=== PATIENT | male | born 1980 | race Caucasian/White ===

== ENCOUNTER 2020-07-30 08:47 | Emergency (ER) | payer OTHER, SELFPAY ==
[2020-07-30 09:45] VITALS: BP 135/90; PULSE 87; RESP 20; TEMP 36.8; O2SAT 100; BMI 23.1
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
[2020-07-30] MEDS: Ketorolac Tromethamine 30 MG/ML VIAL IVPUSH (09:56)
[2020-07-30] MEDS: ondansetron HCL 4 MG/2 ML VIAL IVPUSH (09:56)
[2020-07-30] MEDS: 0.9 % Sodium Chloride 1,000 ML 999 ML IV (09:56)
[2020-07-30] MEDS: Tamsulosin HCL 0.4 MG CAPSULE PO (09:56)
[2020-07-30 09:57] LABS: MANUAL DIFF FLAG NO
[2020-07-30 09:58] LABS: Basophils Percent Auto 0.3 % (0-2); Eosinophils Absolute Auto 0.3 X10*3/uL (0.0-0.4); Eosinophils Percent Auto 2.2 % (0-4); Hematocrit 44.8 % (42-52); Hemoglobin 14.8 g/dl (14.0-18.0); Imm Gran Abs Auto 0.05 X10*3/uL (0.00-0.03); Imm Gran Pct Auto 0.4 % (0.0-0.4); Lymphocytes Absolute Auto 1.6 X10*3/uL (1.2-4.9); Lymphocytes Percent Auto 11.9 % (20-40); Mean Corpuscular Hemoglobin 29.4 pg (27.0-33.0); Mean Corpuscular Volume 89.1 fL (80-98); Monocytes Absolute Auto 1.2 X10*3/uL (0.1-1.2); Monocytes Percent Auto 8.9 % (2-11); Neutrophils Absolute Auto 10.3 X10*3/uL (2.0-8.3); Neutrophils Percent Auto 76.3 % (45-73); Platelet Count 265 X10*3/uL (160-400); Red Blood Count 5.03 X10*6/uL (4.60-5.80); Red Cell Distribution Width 13.2 % (11.0-16.0); White Blood Count 13.5 X10*3/uL (4.8-10.8)
[2020-07-30 10:31] LABS: Alanine Aminotransferase 22 U/L (0-40); Albumin Level 4.3 g/dL (3.5-5.0); Alkaline Phosphatase 94 U/L (39-117); Anion Gap 15 (12-20); Aspartate Amino Transferase 19 U/L (5-37); Bilirubin Total 0.2 mg/dL (0.0-1.0); Blood Urea Nitrogen 12 mg/dL (9-16); Calcium 9.1 mg/dL (8.4-10.2); Carbon Dioxide 24 mmol/L (22-29); Chloride 106 mmol/L (96-108); Estimated Glomerular Filt Rate > 60; Glucose Random 101 mg/dL (60-115); Potassium 4.1 mmol/l (3.3-5.1); Sodium 141 mmol/L (135-145)
[2020-07-30 11:28] LABS: Glucose Urine UA NEG (NEG); Leukocyte Esterase Urine NEG (NEG); Nitrite Urine NEG (NEG); Specific Gravity - Urine >= 1.030 (1.005-1.025); Urine Blood 2+ (NEG); Urine Ketones NEG (NEG); Urine Protein NEG (NEG-TRACE)
[2020-07-30 11:31] LABS: Appearance Urine HAZY; Color Urine YELLOW
[2020-07-30 11:39] LABS: Calcium Oxalate Crystals Urine 1+ /LPF; Mucus Urine 2+ /LPF
[2020-07-30 11:51] LABS: Amphetamine Screen Urine Not Detected (Not Detect); Barbiturates, Urine Not Detected (Not Detect); Benzodiazepines Screen Urine Not Detected (Not Detect); Cannabinoid Screen Urine POSITIVE (Not Detect); Cocaine Screen Urine POSITIVE (Not Detect); Opiate Screen Urine Not Detected (Not Detect); Phencyclidine Screen Urine Not Detected (Not Detect)
== END 2020-07-30 12:43 | disposition home or self-care (01) ==
PROVIDERS: Nurse Practitioner Primary Care; Emergency Provider Emergency Medicine Emergency Medical Services; PCP Internal Medicine
DX: N20.0 Calculus of kidney (principal); R11.0 Nausea; Z79.899 Other long term (current) drug therapy
CPT/HCPCS: 36415; 74176; 80053; 80307; 81001; 85025; 96361; 96374; 96375; 99283; J1885; J2405

== ENCOUNTER 2020-07-31 11:44 | Day surgery (SDC) | payer OTHER, SELFPAY ==
[2020-07-31 12:15] VITALS: BMI 24.0
--- NOTE | 2020-07-31 12:23 | P.CONAN_ITS ---
[facility] Past Medical History Medical History History of kidney stones Smoker Social History Social History Smoking Status: Current every day smoker Cigarettes Per Day: 5 Use of substances other than those prescribed or required for medical reasons: Yes Advance Directives: No Advance Directives Information Provided: Yes Meds Allergies Allergy/AdvReac Type Severity Reaction Status Date / Time lorazepam [From ATIVAN] AdvReac Unknown AGITATION Verified 07/31/20 12:14 Exam Exam Date and Time: July 31, 2020 1223 Height,Weight and Vital Signs: Height 5 ft 4 in Weight 63.503 kg
[2020-07-31 12:26] VITALS: BP 102/71; PULSE 75; RESP 16; TEMP 36.8; O2SAT 98
--- NOTE | 2020-07-31 13:40 | FL_ITS ---
EXAMINATION: XR FL GUIDANCE IN OR WITH IMAGES CLINICAL INFORMATION: Stones. COMPARISON: None TECHNIQUE: Fluoroscopy performed by Dr. Rigo Kaminski. Fluoroscopy Time: 44.2 seconds. DAP: 7.98 mGycm2. Images: 4. FINDINGS: There is contrast opacifying the left proximal ureter with luminal filling defect in the mid ureter likely migrated stone with moderate left hydronephrosis. No intraluminal filling defects seen in the left pelvis On the previous CT abdomen exam, the stone was in the left proximal ureter. Subsequent images revealing internal stent in place. The proximal lead in the kidney pelvis and the distal end in the bladder. FL/FL guidance in OR IMPRESSION: Fluoroscopy was provided to Dr. Rigo Kaminski during left retrograde pyelogram for removal of ureteral stone.
--- NOTE | 2020-07-31 13:55 | MHC.SHP ---
Pre-Procedural Eval Section B Chief Complaint: calculus of kidney Details of Present Illness: This is a 40-year-old male. Had been seen in the emergency room yesterday. Has a proximal left ureteric stone with stranding the kidney. Was managed for pain relief at that point in time. Since there was no beds at the hospital he was sent home and is brought in today for definitive management. Pain has been managed. He has been NPO since midnight. Plan is for left retrograde, ureteroscopy, laser lithotripsy stone basketing and stent placement. Risks and benefits were discussed. He has had prior procedures and is familiar with this procedure. Relevant Family History (Specify if Yes): Yes Relevant Social History: None Present Medications: see Short Stay Collaborative assessment Medical History: No relevant PMH History of Previous Operations: Relevant previous surgery/procedure and date(s) Allergies: Allergies Allergy/AdvReac Type Severity Reaction Status Date / Time lorazepam [From ATIVAN] AdvReac Unknown AGITATION Verified 07/31/20 12:14 Review of Systems Sugical H&P ROS: Negative: Constitution, Cardiovascular, Respiratory, Neurological, Psychiatric, Hem-Onc, Allergic/Immunologic, Gastrointestinal, Genitourinary, Musculoskeletal, Integumentary, Endocrine and Eyes/Ears/Nose/Throat Exam Surgical H&P Exam: Normal: HEENT, Normal: Heart, Normal: Lungs, Normal: Extremities, Normal: Abdomen, Normal: Skin and Normal: Neurological Plan I have reviewed the history and physical and performed a pertinent physical examination on my patient. No changes have occurred unless specified. Cystoscopy with left retrograde, ureteroscopy, laser lithotripsy, stone stent placement
[2020-07-31] MEDS: levoFLOXacin 500 MG TABLET PO (14:01)
[2020-07-31] MEDS: Lactated Ringers 1,000 ML 20 ML IVCONT (14:04)
[2020-07-31 14:45] VITALS: BP 123/73; PULSE 87; RESP 16; TEMP 36.2; O2SAT 95
[2020-07-31 14:50] VITALS: BP 127/76; PULSE 70; RESP 16; O2SAT 98
[2020-07-31 14:55] VITALS: BP 115/82; PULSE 64; RESP 16; TEMP 36.3; O2SAT 98
--- NOTE | 2020-07-31 14:57 | PM.OP ---
Brief Operative Note Date of Service: 07/31/20 Pre-op diagnosis: 1. left mid ureteric stone 2. Left renal kidney stone Post-op diagnosis: same Procedure: 1. Cystoscopy with left retrograde 2. Dilatation left ureteric orifice with fluoroscopy 3. Ureteroscopy with laser lithotripsy stone basketing-there were 2 stones in the kidney 1 in the upper pole 1 in the lower pole 4. Left ureteric stent placement Implants: Six Nepali by 24 cm double-J ureteric catheter Surgeon: Gordy Sierra MD Anesthesia: GLMA Estimated blood loss (mL): 0 Pathology: other (Stones) Condition: stable Disposition: same day
--- NOTE | 2020-07-31 14:59 | W.PM.OPN ---
Operative Note Operative Note Date of Service: 07/31/20 Narrative: PreOperative Diagnosis: Left proximal ureteric stone Post Operative Diagnosis: 1. Left proximal ureteric stone 2. Left renal stone lower pole Procedure: - left cystoscopy, retrograde - dilatation of ureteric orifice under fluoroscopy - left ureteroscopy, laser lithotripsy, stone basketing - plus laser lithotripsy of lower pole stone - left stent placement Surgeon: Dr Gordy Sierra Anesthesia: General Indications for procedure: 40-year-old male. Presented to the emergency room Friday. Pain medication was used for full control of left flank pain. Found to have a proximal ureteric stone. Was discharged home and presents today for definitive procedure. Is aware of the risks and benefits. Has undergone ureteroscopy previously Procedure: After informed consent was verified patient was brought to the operating placed in supine position. Anesthesia was administered per protocol. Patient was placed in modified dorsal lithotomy position and prepped and draped in a sterile fashion. Safety pause time-out and side of surgery confirmed. Antibiotics confirmed. Twenty-two Albanian cystoscope introduced per urethra. No abnormalities noted in the anterior posterior urethra. Both ureteric orifices normal position. Fluoroscopy performed. Filling defects seen in the proximal ureter. Sensor guidewire placed. Dilatation left ureteric orifice under fluoroscopy. Ureteric access sheath placed. Flexible ureteral scope placed. Stone to be knocked back into the kidney was present in the renal pelvis. The stone was encountered and engaged and broken to small pieces with laser lithotripsy. A 2nd stone was down in the lower pole of the kidney and this was also engaged and broken into small pieces. ZeroTip basket used for stone fragment basketing. Pieces were removed and sent for pathology. At this point the flexible ureteroscope was removed. A sensor guidewire was placed. The access sheath was removed. The wire was backloaded into a 22 Albanian cystoscope. This was introduced. The 6 [place]ian by 24 cm double-J ureteric catheter was placed with visualization. Bladder was emptied of fluid. The patient tolerated procedure well was extubated in operating room and transferred in stable condition to recovery area. Pathology: Stones Drains: 6 [place]ian by 24 cm double-J ureteric stent
[2020-07-31 15:00] VITALS: BP 118/86; PULSE 65; RESP 16; O2SAT 98
[2020-07-31 15:15] VITALS: BP 115/84; PULSE 66; RESP 16; O2SAT 98
[2020-07-31] MEDS: Phenazopyridine HCL 100 MG TABLET PO (15:28)
--- NOTE | 2020-07-31 15:46 | HO.POSTANES ---
Post Anesthesia Evaluation Post Anesthesia Evaluation Vital Signs: Vital Signs Temp Pulse Resp BP Pulse Ox 07/31/20 15:15 97.4 F 66 16 115/84 98 07/31/20 15:00 65 16 118/86 98 07/31/20 14:55 97.4 F 64 16 115/82 98 07/31/20 14:50 70 16 127/76 98 07/31/20 14:45 97.2 F 87 16 123/73 95 07/31/20 12:26 98.3 F 75 16 102/71 98 Anesthesia: General LMA Mental Status: Awake Pain Control: Satisfactory Nausea/Vomiting: None Hydration: Adequate Anesthesia-Related Issues: No Anes. Related Issues
== END 2020-07-31 15:38 | disposition home or self-care (01) ==
PROVIDERS: Visit Provider Urology
PROC: (CPT 52356; principal; 2020-07-31 12:40)
DX: N20.0 Calculus of kidney (principal); N20.1 Calculus of ureter; Z87.442 Personal history of urinary calculi; F17.200 Nicotine dependence, unspecified, uncomplicated; Z88.8 Allergy status to other drugs, medicaments and biological substances
CPT/HCPCS: 52356; 88300; C1769; C1894; C2617; J1100; J1885; J2250; J2405; J3010; Q9967

== ENCOUNTER → 2020-08-08 12:50 | Outpatient (BNVA) | payer OTHER, SELFPAY | PROVIDERS: Visit Provider Urology | DX: Z46.6 Encounter for fitting and adjustment of urinary device (principal) | CPT/HCPCS: 52000; 52310; 99212 ==

== ENCOUNTER 2020-09-13 16:24 | Outpatient (REF) | payer OTHER, SELFPAY ==
--- NOTE | ~2020-09-13 | US_ITS ---
EXAMINATION: US RETROPERITONEAL LIMITED (RENAL ONLY) CLINICAL INFORMATION: Calculus of kidney. COMPARISON: CT abdomen and pelvis 07/30/2020. TECHNIQUE: Real-time imaging of the kidneys. FINDINGS: RIGHT KIDNEY: 10.0 x 4.0 x 5.1 cm (SAG x AP x TRV). The kidney is normal in size, contour, and echogenicity. Renal cortical thickness is normal. No calculi or focal parenchymal lesions. No hydronephrosis. LEFT KIDNEY: 10.7 x 5.7 x 4.7 cm (SAG x AP x TRV). The kidney is normal in size, contour, and echogenicity. Renal cortical thickness is normal. No calculi or focal parenchymal lesions. No hydronephrosis. US/US renal BI IMPRESSION: Unremarkable renal ultrasound.
== END 2020-09-13 16:25 | disposition home or self-care (01) ==
LOC: HO.US 16:24
PROVIDERS: PCP Internal Medicine; Visit Provider Urology
DX: N20.0 Calculus of kidney (principal)
CPT/HCPCS: 76775

== ENCOUNTER → 2020-09-19 14:16 | Outpatient (BNVA) | payer OTHER, SELFPAY | PROVIDERS: Visit Provider Urology | DX: Z13.89 Encounter for screening for other disorder (principal) | CPT/HCPCS: 99212 ==

== ENCOUNTER 2021-04-02 14:25 | Outpatient (REF) | payer OTHER, SELFPAY ==
--- NOTE | ~2021-04-02 | US_ITS ---
EXAMINATION: US RETROPERITONEAL LIMITED (RENAL ONLY) CLINICAL INFORMATION: Calculus of kidney. COMPARISON: Ultrasound renal 09/13/2020. CT abdomen and pelvis 07/30/2020. TECHNIQUE: Real-time imaging of the kidneys. FINDINGS: RIGHT KIDNEY: 10.4 x 4.5 x 5.4 cm (SAG x AP x TRV). The kidney is normal in size, contour, and echogenicity. Renal cortical thickness is normal. No calculi or focal parenchymal lesions. No hydronephrosis. LEFT KIDNEY: 10.7 x 5.9 x 5.4 cm (SAG x AP x TRV). The kidney is normal in size, contour, and echogenicity. Renal cortical thickness is normal. No calculi or focal parenchymal lesions. No hydronephrosis. US/US renal BI IMPRESSION: Normal renal ultrasound.
== END 2021-04-02 14:26 | disposition home or self-care (01) ==
LOC: HO.US 14:25
PROVIDERS: Visit Provider Urology
DX: N20.0 Calculus of kidney (principal)
CPT/HCPCS: 76775

== ENCOUNTER 2022-12-27 10:18 | Emergency (ER) | payer OTHER, SELFPAY ==
[2022-12-27 10:20] VITALS: BP 117/64; PULSE 87; RESP 16; TEMP 36.6; O2SAT 97; BMI 22.3
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
--- NOTE | 2022-12-27 10:54 | PC.NURSE ---
PT WAS SEEN AND DISCHARGED BY PROVIDER
== END 2022-12-27 10:54 | disposition home or self-care (01) ==
PROVIDERS: Emergency Provider Emergency Medicine
DX: M79.10 Myalgia, unspecified site (principal); Z79.899 Other long term (current) drug therapy
CPT/HCPCS: 99281; 99283

== ENCOUNTER 2024-06-12 15:55 | Emergency (ER) | payer OTHER, SELFPAY ==
[2024-06-12 16:00] VITALS: BP 120/81; PULSE 104; RESP 18; TEMP 37.4; O2SAT 100; BMI 18.8
--- NOTE | 2024-06-12 16:03 | ED.SKABFB ---
HPI - Skin/Abscess/Foreign Bdy General Chief complaint: Skin/Abscess/Foreign Body Stated complaint: right shoulder region rash/shingles? Time Seen by Provider: 06/12/24 16:01 Source: patient Mode of arrival: ambulatory Limitations: no limitations History of Present Illness ED Provider: JEROME BURRELL PA-C HPI narrative: 44-year-old male presents to the ED today for evaluation of rash to his right shoulder region x4 days. Reports an itching, burning sensation. States rash is moving towards his right axilla. He has not been taking anything for the pain. Admits to history of chicken pox as a child. Vaccinations UTD. Denies new medications, soaps, lotions, detergents. Denies recent antibiotics. Denies known tick or insect bites. Related Data Previous Rx's ?Medication ?Instructions ?Recorded ibuprofen 800 mg tablet 800 mg PO Q8H PRN pain #30 tabs 07/30/20 oxycodone-acetaminophen 5 mg-325 1 tab PO Q8H PRN pain 3 days #10 07/30/20 mg tablet (Endocet) tabs tamsulosin 0.4 mg capsule (Flomax) 0.4 mg PO DAILY #14 caps 07/30/20 oxycodone-acetaminophen 5 mg-325 1 tab PO Q8H PRN pain #14 tabs 08/01/20 mg tablet (Percocet) phenazopyridine 100 mg tablet 100 mg PO Q8H pain 5 days #15 tabs 08/01/20 (Pyridium) tamsulosin 0.4 mg capsule 0.4 mg PO BEDTIME 14 days #14 caps 08/01/20 cyclobenzaprine 5 mg tablet 5 mg PO TID PRN neck pain 7 days 12/27/22 #21 tabs naproxen 500 mg tablet 500 mg PO BID 7 days #14 tabs 12/27/22 prednisone 20 mg tablet 40 mg (2 x 20 mg) PO DAILY 5 days 06/12/24 #10 tabs valacyclovir 1 gram tablet 1,000 mg PO TID 7 days #21 tabs 06/12/24 (Valtrex) Allergies Allergy/AdvReac Type Severity Reaction Status Date / Time lorazepam [From ATIVAN] AdvReac Unknown AGITATION Verified 06/12/24 16:02 Review of Systems Review of Systems: Constitutional: No fever, chills, fatigue, night sweats, weight changes ENT/Mouth: No ear pain, hearing loss, nasal congestion, sinus pain, rhinorrhea, sore throat Eyes: No eye pain, swelling, redness, vision changes, discharge Cardio: No chest pain, palpitations, RAMOS, orthopnea, peripheral edema Pulm: No SOB, cough, sputum, wheezing, dyspnea, hemoptysis GI: No nausea, vomiting, hematemesis, abdominal pain, diarrhea, constipation, hematochezia, melena : No irregular bleeding, dysuria, frequency, urgency, hesitancy, hematuria, flank pain, urinary flow changes, urinary incontinence or retention MSK: No back pain, neck pain, joint pain, myalgias Skin: No lesions, +rash Neuro: No weakness, numbness, paresthesias, LOC, dizziness, headache Psych: No anxiety/panic, depression, SI/HI, AH/VH All other systems reviewed and are negative. [facility] Past Medical History Attestation statement: The following information was validated with the patient. Source: old records reviewed and nursing notes reviewed Medical History Smoker History of kidney stones Social History Social History Cigarettes Per Day: 5 Physical Exam Vital Signs: Vital Signs: Last Vital Signs Temp 99.3 F 06/12/24 16:00 Pulse 104 H 06/12/24 16:00 Resp 18 06/12/24 16:00 BP 120/81 06/12/24 16:00 Pulse Ox 100 06/12/24 16:00 O2 Del Method Room Air 06/12/24 16:00 BMI result Body Mass Index 18.8 tachycardic, vitals otherwise wnl General: Well appearing, in no acute distress. Skin: +area of grouped vesicles on erythematous base to anterior right shoulder in the distribution of right C4 dermatome. spares palms/ soles/ webbed spaces/ mucous membranes. no sloughing. no target lesions. no drainage. no warmth. Head: Normocephalic, atraumatic. EENT: Hearing is intact b/l. Conjunctiva clear. PERRLA, no dendritic lesions. EOM intact. Moist mucous membranes.? Cardiac: Chest wall symmetric. RRR. Lungs: Normal respiratory effort without accessory muscle use. CTA bilaterally Neuro: AOx3. Normal speech. Ambulating with steady gait. Psych: Appropriate mood and affect. Responds appropriately to questions. Medical Decision Making Medical Decision Making MDM Narrative: 44-year-old male presents to the ED today for evaluation of rash to his right shoulder x4 days. Patient is tachycardic to 104, vitals are otherwise wnl. Marijuana odor to clothes. He is nontoxic appearing and in NAD. On exam, there is an area of grouped vesicles on erythematous base to anterior right shoulder in the distribution of right C4 dermatome. spares palms/ soles/ webbed spaces/ mucous membranes. no sloughing. no target lesions. no drainage. no warmth. Differential diagnosis includes contact/atopic/eczematous dermatitis, psoriasis. History and exam findings not consistent with lyme/tick bourne illness, scabies, HFM,? dangerous etiologies of rash such as SJS/TEN, or secondary dangerous causes such as petechial rashes from thrombocytopenia or rickettsial infections.? Physical exam is consistent with herpes zoster. No occular or auricle involvement. Will send valtrex and prednisone to pharmacy for treatment. Patient has remained stable throughout ED visit today. Discussed worrisome signs and symptoms and when to return to the ED. All questions answered at this time. Patient is agreeable with disposition and stable for discharge. Differential Diagnosis Differential Diagnoses: The differential diagnosis associated with the presentation includes as above Admission/Observation Not indicated Prescription Management I considered prescription management with: Antiviral (Valtrex) and Other (prednisone) Social Determinants Patient?s care significantly limited by Social Determinants of Health including: Other Social Determinant of Health Critical Care Time Critical Care Time Critical Care Time: No Discharge Plan Discharge Clinical Impression: Herpes zoster Qualifiers: Herpes zoster complications: without complications Qualified Code(s): B02.9 - Zoster without complications Patient Disposition: Home, Self-Care Instructions: Shingles (ED) Additional Instructions: You were evaluated in the ED today for a rash to your right shoulder. Your rash is consistent with herpes zoster, better known as shingles. Treatment for this is with an antiviral medication (valtrex). This has been sent to your pharmacy for you to take 3 times a day for the next 7 days. Take this as prescribed and to completion. I have also sent prednisone, a steroid, to your pharmacy. Take this as prescribed. Take tylenol and motrin as needed for pain. Follow up with your PCP. Return with new or worsening symptoms. In the case of an emergency call 911. Prescriptions: New valacyclovir [Valtrex] 1 gram tablet 1,000 mg PO TID 7 Days Qty: 21 0RF prednisone 20 mg tablet 40 mg PO DAILY 5 Days Qty: 10 0RF No Action tamsulosin 0.4 mg capsule 0.4 mg PO BEDTIME 14 Days Qty: 14 0RF phenazopyridine [Pyridium] 100 mg tablet 100 mg PO Q8H 5 Days Qty: 15 0RF oxycodone-acetaminophen [Percocet] 5-325 mg tablet 1 tab PO Q8H PRN (Reason: pain) Qty: 14 0RF ibuprofen 800 mg tablet 800 mg PO Q8H PRN (Reason: pain) Qty: 30 0RF oxycodone-acetaminophen [Endocet] 5-325 mg tablet 1 tab PO Q8H PRN (Reason: pain) 3 Days Qty: 10 0RF tamsulosin [Flomax] 0.4 mg capsule 0.4 mg PO DAILY Qty: 14 0RF cyclobenzaprine 5 mg tablet 5 mg PO TID PRN (Reason: neck pain) 7 Days Qty: 21 0RF naproxen 500 mg tablet 500 mg PO BID 7 Days Qty: 14 0RF Referrals: [facility] [place] [facility] [Provider Group] Interventions: ED Discharge Assessment Last Done: 06/12/24 16:10 Discharge Date/Time: 06/12/24 16:10 Print Language: Armenian
[2024-06-12 16:10] VITALS: BP 120/81; PULSE 104; RESP 18; TEMP 37.4; O2SAT 100
== END 2024-06-12 16:10 | disposition home or self-care (01) ==
LOC: HO.ED 16:09
PROVIDERS: Emergency Provider Emergency Medicine
DX: B02.9 Zoster without complications (principal); F17.210 Nicotine dependence, cigarettes, uncomplicated
CPT/HCPCS: 99282; 99283

== ENCOUNTER 2025-06-06 12:43 | Emergency (ER) | payer OTHER, SELFPAY ==
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
[2025-06-06 12:52] VITALS: BP 119/59; PULSE 105; RESP 16; TEMP 36.6; O2SAT 98; BMI 18.9
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
[2025-06-06 14:19] VITALS: BP 119/59; PULSE 105; RESP 16; TEMP 36.6; O2SAT 98
--- OUTSIDE RECORDS SUMMARY | 2025-06-06 19:10 | XMS_ITS | Clinical Summary ---
Author Organization [employer] [facility] [place] [address] Care Team Providers Care Behavioral Therapist Name Role Phone Unavailable Primary Care Provider Unavailabl e Social History Tobacco Use Types Packs/Day Years Used Date Smoking Tobacco: Never Assessed Sex and Gender Information Value Date Recorded Sex Assigned at Not on file Legal Sex Male 4:34 AM EST Gender Identity Not on file Sexual Orientation Not on file Plan of Treatment Health Maintenance Due Date Last Done Comments DTaP,Tdap,and Td Vaccines (1 - Tdap) 2001 Hepatitis B Vaccines (1 of 3 - 19+ 3-dose series) 2001 HPV Vaccines (1 - 3-dose SCD M series) 2009 Depression Screening 07/14/2024 COVID-19 Vaccine (1 - 2024-2 6 season) 2025 Influenza Vaccine (#1) 2025 RSV Immunization Adult Patie nts (1 - 1-dose 75+ series) 2057 HIB Vaccines Aged Out No longer eligi ble based on patient's age to complete this topic Hepatitis A Vaccines Aged Out No long er eligible based on patient's age to complete this topic IPV Vaccines Aged Out No longer eligi ble based on patient's age to complete this topic MMR Vaccines Aged Out No longer eligi ble based on patient's age to complete this topic Meningococcal ACWY Vaccine Aged Out N o longer eligible based on patient's age to complete this topic Meningococcal B Vaccine Aged Out No l onger eligible based on patient's age to complete this topic Pneumococcal Vaccine: Pediat rics (0 to 5 Years) and At-Risk Patients (6 to 49 Years) Aged Out No longer eligible b ased on patient's age to complete this topic RSV Immunization Patients Un jenny 20 months Aged Out No longer eligible b ased on patient's age to complete this topic Varicella Vaccines Aged Out No longer eligible based on patient's age to complete this topic
--- OUTSIDE RECORDS SUMMARY | 2025-06-06 19:10 | XMS_ITS | Clinical Summary ---
Author Organization [facility] Address [address] [place] [address] Care Team Providers Care Staffing Analyst Name Role Phone Pcp, No Primary Care Provider Unavailabl e Allergies No known active allergies Social History Tobacco Use Types Packs/Day Years Used Date Smoking Tobacco: Never Assessed Sex and Gender Information Value Date Recorded Sex Assigned at Not on file Legal Sex Male 3:37 PM EST Gender Identity Not on file Sexual Orientation Not on file Last Filed Vital Signs Vital Sign Reading Time Taken Comments Blood Pressure 116/81 05/26/2018 5:57 PM EST Pulse 82 05/26/2018 5:57 PM EST Temperature 36.4 C (97.6 F) 05/26/2018 4:02 PM EST Respiratory Rate 16 05/26/2018 5:57 PM EST Oxygen Saturation 100% 05/26/2018 5:57 PM EST Inhaled Oxygen Concentration - - Weight 65.8 kg (145 lb) 05/26/2018 4:03 PM EST Height 162.6 cm (5' 4 ) 05/26/2018 4:03 PM EST Body Mass Index 24.89 05/26/2018 4:03 PM EST Plan of Treatment Health Maintenance Due Date Last Done Comments Hepatitis C Virus Screening 1982 HIV Screening 1995 DTaP/Tdap/Td Vaccines (1 - Tdap) 2001 Hepatitis B Vaccines (1 of 3 - 19+ 3-dose series) 2001 Influenza Vaccine 02/11/2025 COVID-19 Vaccine (2023-2 5 season) 2025 HPV Vaccines (No Doses Required) Completed Pneumococcal Vaccine: Pediat eneida (0-5 Years) and At-Risk Patients (6 to 49 Years) Aged Out No longer eligible b ased on patient's age to complete this topic Insurance [facility] [place] [facility] ([place]) Care Teams Staffing Analyst Relationship Specialty Start Date End Date Pcp, [address] [place] [address] PCP - General 05/26/18
== END 2025-06-06 14:20 | disposition home or self-care (01) ==
PROVIDERS: Emergency Provider Student in an Organized Health Care Education/Training Program
DX: M79.5 Residual foreign body in soft tissue (principal); M79.671 Pain in right foot
CPT/HCPCS: 73630; 99282; 99283

== ENCOUNTER → 2025-06-06 13:02 | Outpatient (BNV) | payer OTHER, SELFPAY | PROVIDERS: Visit Provider Radiology Diagnostic Radiology | DX: M79.671 Pain in right foot (principal); R93.6 Abnormal findings on diagnostic imaging of limbs | CPT/HCPCS: 73630 ==

== ENCOUNTER 2025-06-16 10:56 | Outpatient (AMB) | payer OTHER, SELFPAY ==
[2025-06-16 10:58] VITALS: BMI 18.9
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
== END 2025-06-16 11:38 | disposition home or self-care (01) ==
LOC: HO.HPODS 10:56
PROVIDERS: PCP Internal Medicine; Visit Provider Student in an Organized Health Care Education/Training Program
DX: S90.551A Superficial foreign body, right ankle, initial encounter (principal); S90.851A Superficial foreign body, right foot, initial encounter; Z72.0 Tobacco use
CPT/HCPCS: 99204

== ENCOUNTER → 2025-06-16 10:56 | Outpatient (BNVA) | payer OTHER, SELFPAY | PROVIDERS: PCP Internal Medicine; Visit Provider Student in an Organized Health Care Education/Training Program | DX: S90.551A Superficial foreign body, right ankle, initial encounter (principal); Z72.0 Tobacco use; Z18.10 Retained metal fragments, unspecified; X95.9XXA Assault by unspecified firearm discharge, initial encounter; Y24.9XXA Unspecified firearm discharge, undetermined intent, initial encounter | CPT/HCPCS: 99202 ==